=== PATIENT | male | born 2000 | race Two or more races ===

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

== ENCOUNTER → 2023-10-19 | Outpatient (CLI) | payer OTHER ==
[~2023-10-19] MED LIST: AMOX875T2 PO; CEFD1CAP9
== END ==
LOC: M PLARAD 15:28
PROVIDERS: ATTEND Registered Nurse
DX: M86.9 Osteomyelitis, unspecified (principal)

== ENCOUNTER 2023-10-21 14:21 | Emergency (ER) | payer OTHER ==
[~2023-10-21] VITALS: Ht 175.3 cm; Wt 61.5 kg
[2023-10-21] MEDS ORDERED: CEFD1CAP9 (14:38)
[2023-10-21 15:04] LABS: BASO # 0.1 10^3/uL (0.0-0.2); EOS # 0.1 10^3/uL (0.0-0.5); EOS % 1.6 % (0.0-3.0); HEMATOCRIT 45.2 % (42.0-52.0); HEMOGLOBIN 16.5 g/dl (13.5-17.5); LYMPH # 1.7 10^3/uL (1.5-5.0); LYMPH % 32.7 % (24.0-44.0); MEAN CORPUSCULAR HEMOGLOBIN 32.2 pg (27.0-33.0); MEAN CORPUSCULAR HGB CONC 36.5 g/dl (32.0-36.5); MEAN CORPUSCULAR VOLUME 88.1 fl (80.0-96.0); MONO # 0.4 10^3/uL (0.0-0.8); MONO % 8.7 % (2.0-8.0); NEUTROPHILS # 2.8 10^3/uL (1.5-8.5); NEUTROPHILS % 55.8 % (36.0-66.0); PLATELET COUNT, AUTOMATED 207 10^3/uL (150-450); RED BLOOD COUNT 5.13 10^6/uL (4.30-6.10)
[2023-10-21 15:08] LABS: ERYTHROCYTE SEDIMENTATION RATE < 1 mm/hr (0-15)
[2023-10-21] MEDS ORDERED: AMOX875T2 PO (17:54)
[2023-10-21 18:04] VITALS: BP 128/74; TEMP 98.7; O2SAT 99
== END 2023-10-21 18:06 | disposition home or self-care (01) ==
LOC: M ED 14:43
DX: M86.142 Other acute osteomyelitis, left hand (principal); F17.290 Nicotine dependence, other tobacco product, uncomplicated

== ENCOUNTER 2023-11-09 08:40 | Day surgery (SDC) | payer OTHER ==
[~2023-11-09] VITALS: Ht 177.8 cm; Wt 63.5 kg
[~2023-11-09 08:40] MED LIST changes: +ACETAMINOPHEN 1000MG 100ML IV BAG As Ordered ONE; +MIDAZOLAM INJ 2MG/2ML VIAL As Ordered ONE; +fentaNYL 100 MCG/2 ML INJECTION As Ordered ONE; +propofoL 200 MG/20 ML VIAL As Ordered ONE
[2023-11-09] MEDS: LR 1,000 ML IV SCH (09:02)
[2023-11-09] MEDS ORDERED: ceFAZolin 2 GM/D5W 50 ML IV BAG As Ordered ONE (09:07)
[2023-11-09] MEDS ORDERED: KETOROLAC 60MG 2ML VIAL As Ordered ONE (09:33)
[2023-11-09] MEDS: ceFAZolin SOD 2 GM in IV 1 EA IV ONE (09:46)
[2023-11-09] MEDS: BACITRACIN OINTMENT 30GM TUBE As Ordered ONE (10:00)
[2023-11-09] MEDS ORDERED: LR 1,000 ML IV SCH (10:25)
[2023-11-09] MEDS ORDERED: ONDANSETRON 4MG 2ML VIAL IV PRN (10:25)
[2023-11-09] MEDS ORDERED: METOCLOPRAMIDE INJ 10MG/2ML VIAL IV PRN (10:25)
[2023-11-09] MEDS: oxyCODONE 5MG TAB PO PRN (10:33)
[2023-11-09] MEDS: MEPERIDINE 25 MG/ML 1ML VIAL IV PRN (10:33)
[2023-11-09] MEDS: diphenhydrAMINE 50MG/ML VIAL IV PRN (10:42)
[2023-11-09] MEDS ORDERED: AMOX875T2 PO (10:47)
[2023-11-09] MEDS: fentaNYL 100 MCG/2 ML INJECTION IV PRN (11:13)
[2023-11-09 12:15] VITALS: BP 108/62; TEMP 98.3; O2SAT 99
== END 2023-11-09 12:20 | disposition home or self-care (01) ==
LOC: M SDC 08:40
PROVIDERS: ATTEND Orthopaedic Surgery Hand Surgery
DX: M86.9 Osteomyelitis, unspecified (principal); S61.25 Open bite of finger without damage to nail; W54.0XXA Bitten by dog, initial encounter; F17.290 Nicotine dependence, other tobacco product, uncomplicated
CPT/HCPCS: 26034; 76000; 87070; 87075; 87205; J0131; J0665; J0690; J1200; J1885; J2175; J2250; J3010

== ENCOUNTER → 2023-11-19 | Outpatient (CLI) | payer OTHER ==
[~2023-11-19] MED LIST changes: -ACETAMINOPHEN 1000MG 100ML IV BAG As Ordered ONE; -MIDAZOLAM INJ 2MG/2ML VIAL As Ordered ONE; -fentaNYL 100 MCG/2 ML INJECTION As Ordered ONE; -propofoL 200 MG/20 ML VIAL As Ordered ONE
== END ==
LOC: M SOG 11:13
PROVIDERS: ATTEND Physician Assistant
DX: M86.142 Other acute osteomyelitis, left hand (principal); Z53.9 Procedure and treatment not carried out, unspecified reason